=== PATIENT | male | born 2000 ===

== ENCOUNTER 2024-08-05 18:11 | Inpatient (IN) | payer OTHER ==
[~2024-08-05] VITALS: Ht 190.5 cm; Wt 136.4 kg
--- NOTE | 2024-08-05 22:34 | NUR ---
MS NOTIFIED OF PATIENT ARRIVAL
--- NOTE | 2024-08-06 00:08 | NUR ---
ADMIT NOTE... PT A/O X4. SPEAKS IN SOFT TONE. IS SHY. STATE HE IS SI AND HOPELESS. HE CALLS HEIMSELF JUDITH. DIDN'T DO WELL IN INTERVIEW. KEPT SAYING HE WAS TIRED AND WANT'ED TO GO LIE DOWN. TRIED TO DO MUCH ADMISSION POSSIBLE. PT HAD SNACK. AND WENT TO BED. HAS A NAMED GALINA. NOT SURE IF HE CAN GO BACK AT TIME OF DISCHARGE. LET HIM KNOW WE HAVE A COUNSLER HERE HE CAN TALK WITH. WILL CONTINUE TO MONITOR.
[2024-08-06] MEDS ORDERED: Aluminum Hydroxide 320MG/5ML 473 ML PO PRN (05:10)
[2024-08-06] MEDS ORDERED: Ondansetron 4 MG SoluTab MM PRN (05:10)
[2024-08-06] MEDS ORDERED: DiphenhydrAMINE HCl 50 MG Cap PO PRN (05:10)
[2024-08-06] MEDS ORDERED: Acetaminophen 325 MG TABLET PO PRN (05:10)
[2024-08-06] MEDS ORDERED: Polyethylene Glycol 3350 17 gm PO PRN (05:10)
[2024-08-06] MEDS ORDERED: Melatonin 3 MG Tab PO PRN (05:10)
[2024-08-06] MEDS ORDERED: OLANZapine ODT 10 MG Tab MM PRN (05:10)
[2024-08-06] MEDS ORDERED: TraZODone HCl 50 MG Tab PO PRN (05:10)
[2024-08-06] MEDS ORDERED: Ibuprofen 600 MG Tab PO PRN (05:15)
[2024-08-06] MEDS ORDERED: HydrOXYzine Pamoate 50 MG Cap PO PRN (05:15)
[2024-08-06] MEDS ORDERED: FLU VACC TS2024-25(6MOS UP)/PF 45 MCG/0.5 ML SYRINGE IM ONE (05:15)
[2024-08-06] MEDS ORDERED: DiphenhydrAMINE HCl 50 MG/ML 1ML Vial IV PRN (05:15)
[2024-08-06] MEDS ORDERED: Haloperidol 5 MG Tab PO PRN (05:15)
[2024-08-06] MEDS ORDERED: Calcium Carbonate 500 MG Tab Chew PO PRN (05:15)
[2024-08-06] MEDS ORDERED: Haloperidol Lactate Inj. 5 MG/ML Injection IM PRN (05:15)
[2024-08-06] MEDS ORDERED: LORazepam 2 MG/ML 1ML Injection IM PRN (05:20)
[2024-08-06] MEDS ORDERED: LORazepam 2 MG Tab PO PRN (05:20)
--- NOTE | 2024-08-06 05:43 | NUR ---
Patient is a very pleasant, alert and oriented person in the process of transitioning from male to female and going by the name of JUDITH. she has slept through the night since her arrival and admission. She does admit to suicidal ideation and the idea of drowning. No homicidal ideation or AVH noted on admission. Patient is very shy and sensitive about the changes going on in her life right now. Will continue close monitoring every 15 minutes for comfort and safety
[2024-08-06] MEDS ORDERED: FLU VACC TS2024-25(6MOS UP)/PF 45 MCG/0.5 ML SYRINGE IM PRN (08:10)
[2024-08-06 08:41] VITALS: BP 133/69
[2024-08-06] MEDS ORDERED: Multivitamins 1 Tab PO SCH (09:00)
[2024-08-06] MEDS ORDERED: Nicotine Polacrilex 2 MG Gum PO PRN (09:25)
[2024-08-06] MEDS ORDERED: ARIPiprazole 2 MG Tablet PO SCH (11:00)
[2024-08-06] MEDS ORDERED: FLUoxetine HCl 10 MG Cap PO SCH (11:17)
[2024-08-06] MEDS ORDERED: ABILIFY MYCITE2 M2 PO (11:29)
[2024-08-06] MEDS ORDERED: VAGIFEM10 MCG VAG (11:31)
[2024-08-06] MEDS ORDERED: FLUO10 PO (11:33)
[2024-08-06] MEDS ORDERED: SPIR25 PO (11:33)
--- NOTE | 2024-08-06 14:03 | NUR ---
PT ASSESSED FOR SI, PT DENIED SI BUT IS VERY TEARFUL AND FEARFUL OF THE FUTURE. PT IS SCARED THAT FAMILY/ WILL NOT TAKE HIM/HER BACK AND HE/SHE WILL BE HOMELESS. "I NEED HELP...MY MENTAL HEALTH HAS RUINED EVERY RELATIONSHIP I HAVE EVER HAD. I'VE BEEN ISOLATED FOR A LONG TIME...I'M SCARED TO MEET NEW PEOPLE. I MISS MY WHO DOESN'T WANT ME ANYMORE. i'M TERRIFIED.I WANT TO LEARN MORE ABOUT MY BIPOLAR DISORDER AND DEVELOP COPING SKILLS. I WANT MY TO AND FAMILY TO HAVE INFORMATION SO THEY MIGHT BE COMFORTABLE WITH ME TO BE AROUND THEM. PT HAS BEEN TEARFUL AT TIMES TODAY BUT HAS ALSO PARTICIPATED IN GROUPS AND BEEN ACTIVE IN THE MILIEU.
--- NOTE | 2024-08-06 18:09 | NUR ---
PT BECAME VERY EMOTIONAL AFTER CALLING HER ...SAID "SHE HUMG UP ON ME...SAID SHE WILL TALK TO ME TOMORROW...I'M SO SCARED...IF I CAN'T GO HOME I'M ON THE STREET." SHE THEN SAID THAT HER SAID THAT HER PHONE WAS GOING TO . SO THIS ASSURANCE MANAGER REMINDED HER THAT THE PHONE MIGHT HAVE , TO TRY TO RELAXE AND DO SOME SELF CARE. BE VERY OPEN WITH THE DOCTOR TOMORROW ABOUT THE MENTAL HEALTH STRUGGLES THAT SHE IS HAVING AND HOW SHE HAS POOR IMPULSE CONTROL. "MY MENTAL HEALTH HAS RUINED EVERY RELATIONSHIP I HAVE EVER HAD...I DON'T KNOW IF MY IS FROM ME OR NOT...I WISH SHE AND MY FAMILY WOULD JUST TALK TO ME!" SHE FINALLY CALMED DOWN AND IS NOW IN THE TV ROOM WATCHING A MOVIE WITH PEERS.
[2024-08-06] MEDS ORDERED: OLANZapine 5 MG Tab PO SCH (21:00)
[2024-08-06 21:06] VITALS: BP 137/90
--- NOTE | 2024-08-07 04:28 | NUR ---
SHIFT SUMMARY PT WAS LAYING IN BED AT START OF SHIFT, AWOKE EASILY. PT REPORTED SI WITH PLAN TO OVERDOSE ON DRUGS AND DRINK ALCOHOL. PT REPORTED THAT SHE HAS NO INTENT WHILE IN U, STATES SHE FEELS SAFE HERE AND IS WORRIED ABOUT WHEN SHE IS DISCHARGED. PT DENIED ANY HI OR AVH. SHE WAS TEARFUL AND SPOKE ABOUT CONCERNS OF BEING HOMELESS ON DISCHARGE AND SHE WANTS HELP WITH RESOURCES AND TO MEET WITH SHELL GRADER. PT HAD EVENING SNACK AND PLAYED VIDEO GAMES WITH PEERS IN GROUP ROOM. SHE WAS COMPLIANT WITH MEDICATIONS AND REQUESTED AND RECEIVED MELATONIN AND TRAZODONE. PT HAS APPEARED TO BE SLEEPING THROUGHOUT THE NIGHT. RESPIRATIONS CONFIRMED. Q15 MINUTE CHECKS PER UNIT PROTOCOL TO CONTINUE.
[2024-08-07] MEDS ORDERED: Misc. Tablet XX SCH (09:00)
[2024-08-07] MEDS ORDERED: Spironolactone 25 MG Tab PO SCH (09:00)
--- NOTE | 2024-08-07 17:14 | NUR ---
SHIFT SUMMARY: PT ALERT, ORIENTED AND COOPERATIVE WITH CARE. COMPLIANT WITH MEDICATIONS. MEDICATED WTIH PRN FOR C/O INCREASED ANXIETY THIS AM. PT ENGAGED IN UNIT MILIEU, WATCHING TV AND TALKING WITH STAFF AND PEERS. ATTENDED GROUPS, MEALS AND MET WITH THE ADMINISTRATOR OF HOME HEALTH TODAY.
[2024-08-07 22:32] VITALS: BP 127/91
--- NOTE | 2024-08-08 04:19 | NUR ---
PATIENT WAS IN THE GROUP ROOM AT THE BEGINNING OF THE SHIFT. SHE ASKED FOR MEDICATIONS, AND WAS TOLD SHE COULD HAVE THEM FIRST AT 1999, TO WHICH SHE AGREED. SHE WENT TO HER ROOM TO LIE DOWN. RN ASKED IF SHE WANTED SNACK AT 1999, AND SHE DID GO TO DINING AREA TO PARTICIPATE IN SNACK AND FOLLOW UP. SHE WAS PLEASANT AND COOPERATIVE WITH CARES. SHE PRESENTED SOMEWHAT DOWN AND DEPRESSED, EXPRESSED BY PATIENT. SHE STATED THAT SHE DID NOT FEEL LIKE HARMING SELF AND WOULD TELL RN IF THAT CHANGED. SHE STATED, "I'M JUST WORRIED ABOUT THE FUTURE, WHEN I GET OUT OF HERE." SHE WENT TO BED AFTER SNACK AND WAS NOTED TO BE RESTING QUIETLY WITH EYES CLOSED AND RESPIRATIONS CONFIRMED FOR THE REMAINDER OF THE SHIFT. CONTINUING TO MONITOR WITH Q15 MINUTE SAFETY CHECKS.
[2024-08-08 08:08] VITALS: BP 131/75
[2024-08-08] MEDS ORDERED: ARIPiprazole 5 MG Tab PO SCH (09:00)
[2024-08-08] MEDS ORDERED: Estradiol 1 MG Tab PO SCH (11:00)
[2024-08-08] MEDS ORDERED: Amphet Asp/Amphet/D-Amphet 10 MG CapCR PO SCH (11:00)
--- NOTE | 2024-08-08 17:34 | NUR ---
SHIFT NOTE PT UP FOR ALL MEALS THIS SHIFT. DENIES ANY SI/HI/AVH THIS SHIFT. PT WORRIED ABOUT NOT GETTING THE ESTROGEN MEDICATION HE SHOULD BE ON. STATES HE HAS NOT HAD A DOSE IN ABOUT ONE WEEK. PT C/O "REALLY STRUGGLING THIS MORNING" R/T THE S/O WANTING A DIVORCE AND PT STATES HE FOUND OUT THROUGH THE SW AND NOT THE S/O AND THIS WAS UPSETTING TO HIM. PT IS CALM AND COOPERATIVE. HAS PARTICIPATED IN MOST ACTIVITIES THIS SHIFT. NO OBSERVED TEARFULNESS. PT DID SOME PACING AFTER DINNER MEAL. COMPLIANT WITH ALL MEDICATIONS THIS SHIFT.
[2024-08-08 22:44] VITALS: BP 129/85
--- NOTE | 2024-08-09 04:26 | NUR ---
PATIENT WAS UP IN THE GROUP ROOM WATCHING TELEVISION AT THE BEGINNING OF THE SHIFT. SHE WAS IN A POSITIVE AND UPBEAT MOOD, TALKING WITH RN FOR A TIME ABOUT HOW WELL HER DAY WENT. SHE STATED THAT THE [employer]ORAT[facility] [employer] HAS HELPED HER TO HAVE TRANSITIONAL HOUSING AT A HALF-WAY THAT IS "TRANS FRIENDLY" AND "I AM LOOKING FORWARD TO MEETING PEOPLE". SHE JOINED THE GROUP FOR SNACK AND FOLLOW UP IN THE DINING AREA AT 1999. SHE WAS PLEASANT AND COOPERATIVE WITH CARES, INCLUDING EVENING MEDICATIONS. SHE THEN TOOK A SHOWER AND WATCHED TELEVISION FOR A WHILE, THEN WENT TO BED. SHE WAS NOTED TO BE RESTING QUIETLY WITH EYES CLOSED AND RESPIRATIONS CONFIRMED FOR THE REMAINDER OF THE SHIFT. SHE HAD NO S/SX SUICIDAL IDEATION OR SELF HARM THIS SHIFT. CONTINUING TO MONITOR FOR SAFETY WITH Q15 MINUTE CHECKS.
[2024-08-09 08:07] VITALS: BP 124/93
--- NOTE | 2024-08-09 17:32 | NUR ---
SHIFT SUMMARY PT A/O X4; PLEASANT AND COOPERATIVE WITH CARE. SHE DENIES SI, HI, OR ANY HALLUCINATIONS. SHE REPORTS THAT SHE IS DOING MUCH BETTER SINCE BEING IN THE [email or web address]] AND IS REFLECTING A LOT ON HER PAST RELATIONSHIP. PT IS EXCITED TO GO TO [facility] UPON DISCHARGE BUT IS ALSO EXPRESSING A LOT OF ANXIETY. PT TREATED WITH VISTARIL PRN WITH GOOD EFFECT. PT PARTICIPATED IN ALL MEALS AND GROUPS THIS SHIFT. SHE HAS ALSO BEEN ACTIVE ON THE MILEU AND INTERACTS WITH PEERS. SHE CONTINUES TO BE MONITORED VIA Q15 ROUNDING FOR SAFETY.
--- NOTE | 2024-08-09 22:29 | NUR ---
CARE MANAGEMENT FOR DISCHARGE PLANNING: PATIENT WAS INSTRUCTED ON DISCHARGE RESOURCES AVAILABLE TO THEM INCLUDING: COMMUNITY RESOURCE GUIDE, [employer], [facility] SUPPORT GROUPS AND LEGAL SERVICES. SHE IS ABLE TO VERBALIZE AN UNDERSTANDING AND WILL BE PROVIDED WRITTEN INSTRUCTIONS.
[2024-08-09 23:40] VITALS: BP 113/68
--- NOTE | 2024-08-10 04:19 | NUR ---
SHIFT SUMMARY: PATIENT WAS IN THE GROUP ROOM WATCHING A MOVIE AT THE BEGINNING OF THE SHIFT. SHE WAS PLEASANT AND APPROPRIATE WITH STAFF AND PEERS. SHE SPOKE POSITIVELY OF THE [facility] AND OF THE FUTURE. SHE PARTICIPATED IN SNACK AND FOLLOW UP TIME IN THE DINING AREA AT 1999. SHE THEN WENT TO TAKE A SHOWER. SHE WAS COMPLIANT WITH EVENING MEDICATIONS. SHE WENT TO BED SHORTLY AFTER SHOWERING, AND WAS NOTED TO BE IN BED RESTING WITH EYES CLOSED AND RESPIRATIONS CONFIRMED. SHE HAD NO S/SX SUICIDAL IDEATION OR SELF HARM THIS SHIFT. CONTINUING TO MONITOR FOR SAFETY WITH Q15 MINUTE CHECKS.
[2024-08-10 08:02] VITALS: BP 130/78
[2024-08-10] MEDS ORDERED: LORazepam 1 MG Tab PO PRN (10:40)
--- NOTE | 2024-08-10 16:49 | NUR ---
SHIFT SUMMARY PT A/O X4; PLEASANT AND COOPERATIVE WITH CARE. PT DENIES SI, HI, OR ANY HALLUCINATIONS. SHE REPORTS THAT SHE IS DOING MUCH BETTER AND IS EXCITED FOR THE FUTURE. PT TO POTENTIALLY DISCHARGE ON SUNDAY TO A [facility]. PT ALSO REPORTED THAT SHE WAS ABLE TO TAKE A NAP THIS SHIFT AND HER ANXIETY IS MUCH BETTER AFTER GETTING SOME REST.
[2024-08-10 23:06] VITALS: BP 148/75
--- NOTE | 2024-08-11 04:01 | NUR ---
SHIFT SUMMARY: ASSUMED CARE FROM PRIOR SHIFT. PATIENT IS A/OX4, ABLE TO VOICE NEEDS AND HAVE MEANINGFUL CONVERSATIONS. JUDITH IS ABLE TO STATE TO ME POSITIVE SELF TALK "I'M PROUD OF MYSELF AND WHAT I'VE ACCOMPLISHED HERE". SHE FEELS SHE CAN STAY SOBOR WITH A NA SUPPORT GROUP. I HAVE PRINTED OFF NA SUPPORT GROUPS IN THE COMMUNITY SHE IS DISCHARGING TO. SHE IS REACHING OUT TO HER PARENTS AND STARTING A RECONNECTION WITH THEM. SHE IS COMPLIANT WITH MEDICATIONS, ASSESSMENT AND CARE. SHE CURRENTLY DENIES SI, AH, VH AND TH. SHE SLEEPS THROUGH THE NIGHT. NO NOTED BEAHVIORS OR ISSUES. WE WILL CONTINUE TO MONITOR EVERY 15 MIN FOR SAFETY AND COMFORT.
--- NOTE | 2024-08-11 05:46 | NUR ---
PATIENT SLEPTED THROUGH THE NIGHT. NO NOTED ISSUES OR BEAHVIORS.
--- NOTE | 2024-08-11 16:07 | NUR ---
HOSPITAL DISCHARGE APPOINTMENT Patient has hospital discharge appointment scheduled on 08/21/2024 at 0900 with Alex Vernon MD at [place] [address] [place] [address] // [phone] CHRIS entered apppointment information into patient's chart
--- NOTE | 2024-08-11 16:27 | NUR ---
SHIFT SUMMARY : PT HAS BEEN IN A GREAT MOOD TODAY. DENIES SI, HI AND AVH. IS ENCOURAGED WITH THE PROGRESS OF HIS RELATIONSHIP WITH FATHER AND STEP MOTHER WHEN HE IS DISCHARGED. HE IS ALSO EXCITED ABOUT HIS DISCHARGE FUTURE WITH POSITIVE HOPES OF GETTING A JOB AND AN APARTMENT. WILL BE DISCHARGED TO [facility] PER PT. HE IS ANXIOUS ABOUT IT ND REQUESTED ANXETY MED AT THIS TIME. WILL GIVE MED AND CONTINUE TO MONITOR.
--- NOTE | 2024-08-11 16:29 | NUR ---
IMPORTANT HOSPITAL DISCHARGE INFORMATION Patient to discharge to Room at the [facility] // [address] [place], [place] // [phone]. Patient must be at the retirement by 1700 for intake and will need transportation scheduled through [facility] by calling [facility] at [phone]
[2024-08-12 00:20] VITALS: BP 133/90
--- NOTE | 2024-08-12 04:23 | NUR ---
Patient is alert and oriented and pleasant and cooperative with staff and peers. She is very active in the milieu, in activities and conversive with everyone. No SI,HI or AVH noted on evening assessment. She is also very excited about her discharge plan and getting started with it today. Sleep time so far has been around 8 hours. will continue close monitoring every 15 minutes for comfort and safety.
[2024-08-12 07:43] VITALS: BP 133/78
--- NOTE | 2024-08-12 08:34 | NUR ---
PATIENT REQUESTING MEDICATIONS AFTER BREAKFAST. VERBALIZED FEELING VERY ANXIOUS REGARDING BEING DISCHARGED TODAY AND REQUESTING SOMETHING FOR ANXIETY "SO I CAN THINK CLEARLY AND NOT BE SO ANXIOUS" HYDROXYZINE GIVEN ALONG WITH AM MEDICATIONS.
[2024-08-12] MEDS ORDERED: ABILIFY MYCITE5 M2 PO (11:27)
[2024-08-12] MEDS ORDERED: ESTR2 PO (11:28)
[2024-08-12] MEDS ORDERED: OLAN5 PO (11:29)
[2024-08-12] MEDS ORDERED: MELA3 PO (11:29)
--- NOTE | 2024-08-12 13:42 | NUR ---
DISCHARGE NOTE PATIENT GIVEN DISCHARGE INSTRUCTIONS PT VERBALIZED UNDERSTANDING, MEDICATIONS RX FAXED TO PHARMACY. PATIENT TRANSPORT TO [facility] [place] [facility]IA [facility]. PT APPEARS HAPPY TO BE MOVING FORWARD IN CARE.
== END 2024-08-12 13:42 | disposition home or self-care (01) | DRG 882 ==
LOC: BHU 21:46
PROVIDERS: ADMIT Psychiatry & Neurology Psychiatry
DX: F43.23 Adjustment disorder with mixed anxiety and depressed mood (principal); R45.851 Suicidal ideations; Z59.00 Homelessness unspecified; F60.3 Borderline personality disorder; F90.9 Attention-deficit hyperactivity disorder, unspecified type
CPT/HCPCS: 90656; A9270